=== PATIENT | female | born 1935 ===

== ENCOUNTER → 2022-12-07 | Outpatient (CLI) | payer MEDICARE, OTHER ==
[~2022-12-07] VITALS: Ht 165.1 cm; Wt 79.0 kg
[~2022-12-07] MED LIST: AMIO200T68 PO; ASPI-1450 PO; FURO40 PO; LEVO100 PO; LOSA-381 PO; METO25 PO; PANT-31 PO; UBID100C10 PO
[2022-12-07 10:47] VITALS: BP 115/41; PULSE 50; RESP 14; TEMP 98; O2SAT 96
== END | disposition home or self-care (01) ==
LOC: SRCNTR 10:43
PROVIDERS: ATTEND Internal Medicine
DX: J44.1 Chronic obstructive pulmonary disease with (acute) exacerbation (principal); Z79.82 Long term (current) use of aspirin; Z79.899 Other long term (current) drug therapy
CPT/HCPCS: G0463; Z7500